=== PATIENT | male | born 1985 | race African-American/Black ===

== ENCOUNTER 2024-01-01 22:57 | Emergency (ER) | payer MEDICAID ==
[~2024-01-01] VITALS: Ht 172.7 cm; Wt 115.0 kg
[2024-01-01 23:05] VITALS: O2SAT 98
[2024-01-02] MEDS ORDERED: IBUP-2029 MT (03:46)
[2024-01-02] MEDS ORDERED: METH-653 MT (03:46)
[2024-01-02 04:11] VITALS: BP 156/68; PULSE 83; RESP 11; TEMP 98.9
== END 2024-01-02 04:16 | disposition home or self-care (01) ==
LOC: ER 22:57
DX: S20.211A Contusion of right front wall of thorax, initial encounter (principal); V49.9XXA Car occupant (driver) (passenger) injured in unspecified traffic accident, initial encounter; Y93.89 Activity, other specified; Y92.89 Other specified places as the place of occurrence of the external cause; Y99.8 Other external cause status
CPT/HCPCS: 99284; 71101; 74176; Z7610 ×2

== ENCOUNTER 2024-04-30 07:09 | Inpatient (IN) | payer SELFPAY ==
[~2024-04-30] VITALS: Ht 182.9 cm; Wt 124.7 kg
[~2024-04-30 07:09] MED LIST: IBUP-2029 MT; METH-653 MT
[2024-04-30] MEDS ORDERED: HYDROCHLOROTHIAZIDE 25MG TABLET PO ONE (08:15)
[2024-04-30 08:29] LABS: BASOPHILS % 1.2 % (0.0-2.0); CHLORIDE 106 mEq/L (98-107); EOSINOPHILS % 3.5 % (0.0-5.0); HEMATOCRIT. 42.7 % (42.0-52.0); HEMOGLOBIN. 14.2 g/dL (14.0-18.0); MEAN CORPUSCULAR HGB CONC 33.1 g/dL (31.0-37.0); MEAN CORPUSCULAR VOLUME 84.7 fL (80.0-94.0); MEAN PLATELET VOLUME 9.1 fl (7.4-10.4); MONOCYTES % 10.9 % (2.0-8.0); NEUTROPHILS % 42.4 % (40.0-76.0); PLATELET 208 x1000/uL (130-400); POTASSIUM 3.6 mEq/L (3.5-5.1); RED BLOOD CELL COUNT 5.05 mill/uL (4.7-6.1); RED CELL DISTRIBUTION WIDTH 13.5 % (11.6-14.6); SODIUM 139 mEq/L (136-145); WHITE BLOOD COUNT 4.6 x1000/uL (4.5-11.0)
[2024-04-30 08:30] LABS: CALCIUM 9.7 mg/dL (8.7-10.4); CARBON DIOXIDE 27 mEq/L (21-32)
[2024-04-30 08:35] LABS: CREATININE 1.3 mg/dL (0.6-1.3); GLUCOSE 107 mg/dL (70-105); UREA NITROGEN BLOOD 8 mg/dL (9-23)
[2024-04-30 08:36] LABS: TROPONIN I HIGH SENSITIVITY 7 ng/L (3.0-53)
[2024-04-30] MEDS: DICYCLOMINE 10 MG/5 ML ORAL SYR PO STA (09:47)
[2024-04-30] MEDS: MAGNESIUM/ALUMINUM HYDROXIDE/SIMETHICONE 30ML UDC PO STA (09:47)
[2024-04-30] MEDS: FAMOTIDINE 20MG/2ML VIAL IV STA (09:47)
[2024-04-30] MEDS: HYDRALAZINE 20MG/ML VIAL IV ONE (09:49)
[2024-04-30] MEDS: AMLODIPINE 10MG TABLET PO SCH (12:30)
[2024-04-30] MEDS: LOSARTAN 25 MG TABLET PO SCH (12:30)
[2024-04-30] MEDS: PANTOPRAZOLE 40MG DR TABLET PO SCH (14:02)
[2024-04-30 15:13] LABS: CREATINE KINASE 742 IU/L (46-171); TROPONIN I HIGH SENSITIVITY 6 ng/L (3.0-53)
[2024-04-30] MEDS: LACTATED RINGERS 1,000 ML IV ONE (17:14)
[2024-04-30] MEDS ORDERED: HYDRALAZINE 20MG/ML VIAL IV PRN ×2 (18:45→19:15)
[2024-04-30] MEDS ORDERED: MAGNESIUM/ALUMINUM HYDROXIDE/SIMETHICONE 30ML UDC PO PRN (19:15)
[2024-04-30] MEDS: HYDRALAZINE 20MG/ML VIAL IV PRN (20:48)
[2024-04-30 22:00] VITALS: BP 178/106; PULSE 97; RESP 20; TEMP 98
[2024-04-30] MEDS: CLONIDINE 0.1MG TABLET PO PRN (22:12)
[2024-04-30 23:04] VITALS: BP 173/98; PULSE 98; RESP 19; TEMP 97.7
[2024-04-30 23:38] LABS: TROPONIN I HIGH SENSITIVITY 4 ng/L (3.0-53)
[2024-04-30 23:40] LABS: CREATINE KINASE 641 IU/L (46-171)
[2024-05-01 01:00] VITALS: BP 165/96; PULSE 100; RESP 18; TEMP 99.1
[2024-05-01 04:00] VITALS: BP 197/110; PULSE 114; RESP 19; TEMP 100
[2024-05-01 07:07] LABS: BASOPHILS % 0.4 % (0.0-2.0); EOSINOPHILS % 0.1 % (0.0-5.0); HEMATOCRIT. 44.9 % (42.0-52.0); HEMOGLOBIN. 14.7 g/dL (14.0-18.0); LYMPHOCYTES % 15.8 % (20.0-50.0); MEAN CORPUSCULAR HEMOGLOBIN 27.9 pg (28.0-32.0); MEAN CORPUSCULAR HGB CONC 32.8 g/dL (31.0-37.0); MEAN CORPUSCULAR VOLUME 84.9 fL (80.0-94.0); MEAN PLATELET VOLUME 9.9 fl (7.4-10.4); MONOCYTES % 7.4 % (2.0-8.0); NEUTROPHILS % 76.3 % (40.0-76.0); PLATELET 240 x1000/uL (130-400); RED BLOOD CELL COUNT 5.28 mill/uL (4.7-6.1); WHITE BLOOD COUNT 7.4 x1000/uL (4.5-11.0)
[2024-05-01 08:00] VITALS: BP 170/122; PULSE 122; RESP 18; TEMP 98
[2024-05-01 08:16] LABS: CHLORIDE 105 mEq/L (98-107); POTASSIUM 3.5 mEq/L (3.5-5.1); SODIUM 137 mEq/L (136-145)
[2024-05-01 08:17] LABS: CARBON DIOXIDE 23 mEq/L (21-32)
[2024-05-01 08:18] LABS: CALCIUM 9.8 mg/dL (8.7-10.4)
[2024-05-01 08:22] LABS: CREATININE 1.2 mg/dL (0.6-1.3); GLUCOSE 107 mg/dL (70-105)
[2024-05-01 08:23] LABS: LDL CHOLESTEROL 122 mg/dL (5-100); TRIGLYCERIDE 56 mg/dL (0-150); UREA NITROGEN BLOOD 9 mg/dL (9-23)
[2024-05-01 08:24] LABS: ALANINE AMINOTRANSFERASE 18 IU/L (10-49); ALBUMIN 4.7 g/dL (3.2-4.8); ASPARTATE AMINOTRANSFERASE 27 IU/L (<34); CHOLESTEROL 178 mg/dL (<200); HDL CHOLESTEROL 53 mg/dL (>55)
[2024-05-01 08:25] LABS: BILIRUBIN DIRECT 0.3 mg/dL (<=3.0); BILIRUBIN TOTAL 0.8 mg/dL (0.1-1.0); PROTEIN TOTAL 7.5 g/dL (6.0-8.3)
[2024-05-01 08:26] LABS: T4 FREE 1.35 ng/dL (0.89-1.76)
[2024-05-01 08:27] LABS: THYROID STIMULATING HORMONE 1.09 uIU/mL (0.55-4.78)
[2024-05-01 11:00] VITALS: BP 151/95
[2024-05-01 16:00] VITALS: BP 108/63; PULSE 89; RESP 18; TEMP 97.4
[2024-05-01 20:00] VITALS: BP 132/86; PULSE 84; RESP 19; TEMP 98.8
[2024-05-01] MEDS: PANTOPRAZOLE 40MG DR TABLET PO SCH (21:41)
[2024-05-01] MEDS: CARVEDILOL 3.125 MG TABLET PO SCH (21:42)
[2024-05-01] MEDS: ATORVASTATIN CALCIUM 40MG TABLET PO SCH (21:42)
[2024-05-02] VITALS: BP 152/86; PULSE 86; RESP 19; TEMP 98.1
[2024-05-02 04:00] VITALS: BP 129/76; PULSE 82; RESP 19; TEMP 97.9
[2024-05-02 06:56] LABS: CLARITY URINE CLOUDY (CLEAR); COLOR URINE YELLOW (YELLOW); GLUCOSE URINE NEGATIVE (NEGATIVE); KETONES URINE TRACE (NEGATIVE); LEUKOCYTE ESTERASE URINE NEGATIVE (NEGATIVE); NITRITE URINE NEGATIVE (NEGATIVE); OCCULT BLOOD URINE NEGATIVE (NEGATIVE); PH URINE 5.5 (4.5-8.0); PROTEIN URINE TRACE (NEGATIVE); SPECIFIC GRAVITY URINE 1.027 (1.005-1.030); UROBILINOGEN URINE 0.2 E.U./dL (0.2-1.0)
[2024-05-02 07:09] LABS: BACTERIA URINE TRACE; HYALINE CASTS URINE 0-5 /lpf; RBC URINE 0-2 /hpf (0-2); SQUAMOUS EPITHELIAL CELL URINE 1+ /lpf (RARE/1+); WBC URINE 0-2 /hpf (0-2)
[2024-05-02 07:12] LABS: *AMPHETAMINES SCREEN URINE NEGATIVE (NEGATIVE); *BARBITURATES SCREEN URINE NEGATIVE (NEGATIVE); *BENZODIAZEPINES SCREEN URINE NEGATIVE (NEGATIVE); *COCAINE SCREEN URINE NEGATIVE (NEGATIVE); METHADONE URINE SCREEN NEGATIVE (NEGATIVE); OPIATES URINE SCREEN NEGATIVE (NEGATIVE); PHENCYCLIDINE URINE SCREEN NEGATIVE (NEGATIVE)
[2024-05-02 07:13] LABS: CANNABINOID URINE SCREEN NEGATIVE (NEGATIVE); ECSTASY MDMA SCREEN URINE NEGATIVE (NEGATIVE)
[2024-05-02 08:00] VITALS: BP 128/88; PULSE 82; RESP 18; TEMP 98.1
[2024-05-02 10:39] LABS: HEMATOCRIT 44.3 % (42.0-52.0); HEMOGLOBIN 14.5 g/dL (14.0-18.0); MEAN CORPUSCULAR HEMOGLOBIN 28.4 pg (28.0-32.0); MEAN CORPUSCULAR HGB CONC 32.7 g/dL (31.0-37.0); MEAN CORPUSCULAR VOLUME 86.9 fL (80.0-94.0); PLATELET 206 x1000/uL (130-400); RED CELL DISTRIBUTION WIDTH 13.7 % (11.6-14.6); WHITE BLOOD COUNT 5.3 x1000/uL (4.5-11.0)
[2024-05-02] MEDS ORDERED: IOHEXOL-300 100 ML BOTTLE ONE (10:54)
[2024-05-02 11:04] LABS: POTASSIUM 3.4 mEq/L (3.5-5.1)
[2024-05-02 11:05] LABS: CALCIUM 9.3 mg/dL (8.7-10.4)
[2024-05-02 12:00] VITALS: BP 142/92; PULSE 85; RESP 18; TEMP 97.5
[2024-05-02] MEDS: SODIUM CHLORIDE 0.9% 500 ML IV ONE (12:00)
[2024-05-02 12:25] LABS: CREATININE 1.6 mg/dL (0.6-1.3)
[2024-05-02] MEDS: SODIUM CHLORIDE 0.9% 1,000 ML IV ONE (13:05)
[2024-05-02] MEDS ORDERED: PANT40TA51 PO (15:09)
[2024-05-02] MEDS ORDERED: LIP40 PO (15:09)
[2024-05-02] MEDS ORDERED: LOSA25TA26 PO (15:09)
[2024-05-02] MEDS ORDERED: COR3 PO (15:09)
[2024-05-02] MEDS ORDERED: AMLO10TA80 PO (15:09)
[2024-05-02 16:00] VITALS: BP 150/97; PULSE 87; RESP 18; TEMP 97.4
[2024-05-02 16:36] VITALS: BP 142/92; PULSE 85; TEMP 97.5; O2SAT 98
[2024-05-02] MEDS: POTASSIUM CHLORIDE 20MEQ/PACKET PO NR (16:58)
== END 2024-05-02 17:02 | disposition home or self-care (01) | DRG 243 ==
LOC: ER 07:09 → 5WST 09:44 → EDBEDREQ 09:49 → EDBEDREQTM 09:49 → 7EST 23:14
PROVIDERS: ADMIT Preventive Medicine Clinical Informatics; ATTEND Preventive Medicine Clinical Informatics
DX: K21.9 Gastro-esophageal reflux disease without esophagitis (principal); K76.0 Fatty (change of) liver, not elsewhere classified; E78.00 Pure hypercholesterolemia, unspecified; I16.0 Hypertensive urgency; K27.9 Peptic ulcer, site unspecified, unspecified as acute or chronic, without hemorrhage or perforation; I10 Essential (primary) hypertension; E87.6 Hypokalemia; K59.00 Constipation, unspecified; Z87.828 Personal history of other (healed) physical injury and trauma; Z87.891 Personal history of nicotine dependence; Z93.3 Colostomy status; Z79.899 Other long term (current) drug therapy
CPT/HCPCS: 36415; 71045; 74177; 80048; 80061; 80076; 80305; 81003; 82550; 84439; 84443; 84481; 84484; 85025; 85027; 87077; 93005; 99285; J0360; J3490; Q9967